=== PATIENT | male | born 1985 | race Caucasian/White ===

== ENCOUNTER 2024-01-29 11:42 | Emergency (ER) | payer BC, SELFPAY ==
[2024-01-29 11:49] VITALS: BP 151/88; PULSE 60; RESP 18; TEMP 36.3; O2SAT 98; BMI 34.4
--- NOTE | 2024-01-29 12:01 | ED.GENADULT ---
HPI - General Adult General Date Seen: 01/29/24 Chief complaint: Neck Injury/Pain Stated complaint: L arm numb, tingling Time Seen by Provider: 01/29/24 11:52 Source: patient Mode of arrival: ambulatory Limitations: no limitations History of Present Illness HPI narrative: Patient is a 38-year-old male with a history of hyperlipidemia on a statin presenting for left arm numbness. He was sent here by the [facility] after an EKG that was concerning. The cannot say for shows early repolarization or something else of concern. Patient states for the past couple days he has been having intermittent numbness and discomfort to his left arm going from his left shoulder down to his wrist. States the seems like it is worse when he is at rest and goes away when he is working. Has never had issues like this before. Initially thought it was due to sleeping wrong but was concerned because it was persisting for a few days. Is not sure what she was doing when he 1st noticed the symptoms. Denies having symptoms like this before. Denies weakness to that arm. Denies chest pain, shortness of breath, lightheadedness, dizziness, weakness, abdominal pain, headache, vision changes. No other concerns noted at this time. Currently asymptomatic Related Data Home Medications ?Medication ?Instructions ?Recorded ?Confirmed atorvastatin 20 mg tablet 20 mg PO QPM 01/29/24 01/29/24 Allergies Allergy/AdvReac Type Severity Reaction Status Date / Time No Known Drug Allergies Allergy Verified 01/29/24 11:48 Review of Systems Status of ROS: Reports: 10 or more systems reviewed and unremarkable except as noted in History and below Exam Narrative: Exam Narrative: Const: Well-nourished, Well-developed, in no distress Eyes: PERRL, no conjunctival injection, and symmetrical lids HENT: Atraumatic external nose and ears. Moist mucous membranes. Neck: Symmetric, trachea midline, No thyromegaly. CVS: RRR, No murmurs or gallops. Peripheral pulses 2+ and equal in all extremities RESP: Unlabored respiratory effort. Clear to auscultation bilaterally. GI: Nontender/Nondistended, No rebound or guarding. MSK:Extremities w/o deformity, Normal Active ROM Skin: Warm, Dry. No rashes or lesions. Neuro: Normal Muscle tone, No focal neurological deficits. Psych: Awake, Alert, & Oriented x3. Appropriate mood and affect. Const: Vital Signs, click to edit/add: Vital Signs - 24 hr 01/29/24 11:49 01/29/24 12:30 01/29/24 12:31 Temperature 97.4 F L Pulse Rate 52 L 51 L Pulse Rate [Pulse Oximeter] 60 Respiratory Rate 18 18 Blood Pressure 132/78 Blood Pressure [Ri ght Upper Arm] 151/88 H Pulse Oximetry 98 98 96 Oxygen Delivery Me thod Room Air Course Vital Signs Vital signs: Initial Vital Signs Temperature 97.4 F L 01/29/24 11:49 Temperature Source Temporal Artery Scan 01/29/24 11:49 Pulse Rate 60 01/29/24 11:49 Respiratory Rate 18 01/29/24 11:49 Blood Pressure 151/88 H 01/29/24 11:49 Blood Pressure Mean 109 H 01/29/24 11:49 Pulse Oximetry 98 01/29/24 11:49 Oxygen Delivery Method Room Air 01/29/24 11:49 Vital Signs Temperature 97.4 F L 01/29/24 11:49 Pulse Rate 60 01/29/24 11:49 Respiratory Rate 18 01/29/24 11:49 Blood Pressure 151/88 H 01/29/24 11:49 Pulse Oximetry 98 01/29/24 11:49 Oxygen Delivery Method Room Air 01/29/24 11:49 Temperature 97.4 F L 01/29/24 11:49 Pulse Rate 51 L 01/29/24 12:31 Respiratory Rate 18 01/29/24 12:30 Blood Pressure 132/78 01/29/24 12:30 Pulse Oximetry 96 01/29/24 12:31 Oxygen Delivery Method Room Air 01/29/24 11:49 Medical Decision Making [facility] Narrative Medical decision making narrative: Patient is a 38-year-old male presenting for left arm numbness and tingling. This is intermittent. He with the primary care provider was told to come here for evaluation. She states he had a possibly concerning EKG. He is asymptomatic at this time and is having now chest discomfort or shortness of breath. The arms symptoms seem to resolve with movement. Will order CBC, BMP, point of care troponin, EKG. Lab work all returned showing no concerning abnormalities. Concerning symptoms have been going on for several days I do not believe is necessary to repeat the troponin. EKG shows sinus bradycardia but otherwise no concerning findings. The symptoms any more related to a nerve dysfunction rather than cardiac. He is otherwise doing well we discharged home with primary care follow-up. He is agreeable to this plan. Lab Data Labs: Lab Results 01/29/24 Range/Units 12:10 WBC 4.77 (4.50-11.00) K/uL RBC 4.63 (4.30-5.90) m/uL Hgb 14.3 (13.5-17.5) gm/dL Hct 41.8 (37.0-53.0) % MCV 90 (80-100) fL MCH 31 (26-34) pg MCHC 34 (32-36) gm/dL RDW Coeff of Jose Alberto 12.7 (11.5-15.5) % Plt Count 220 (140-440) K/uL Neut % (Auto) 56.5 (42.0-72.0) % Lymph % (Auto) 31.4 (20-44) % Bandera % (Auto) 10.3 (0.0-11.0) % Eos % (Auto) 0.8 (0.0-7.0) % Baso % (Auto) 0.4 (0.0-3.0) % Neut # (Auto) 2.69 (1.7-7.0) K/uL Lymph # (Auto) 1.50 (0.90-2.90) K/uL Bandera # (Auto) 0.50 (0.00-0.90) K/UL Eos # (Auto) 0.04 (0.00-0.50) K/uL Baso # (Auto) 0.02 (0.00-0.30) K/uL Abs Immat Gran (auto) 0.03 (0.00-0.30) K/uL Imm/Tot Granulo (auto) 0.6 % Sodium 140 (135-149) mmol/L Potassium 4.2 (3.6-5.1) mmol/L Chloride 106 (96-114) mmol/L Carbon Dioxide 28 (20-32) mmol/L Anion Gap 6 L (7-15) mEq/L BUN 17 (5-24) mg/dL Creatinine 0.8 (0.5-1.5) mg/dL Estimated Creat Clear 131.81 Estimated GFR 118 ml/min Glucose 109 (60-115) mg/dL Calcium 9.3 (8.4-10.6) mg/dL POC Troponin I 0.00 L (0.01-0.04) ng/ml ECG Data Attestation: I personally reviewed and interpreted this ECG as follows: Prior ECG tracings: not available for review Interpretation: Sinus bradycardia with a rate of 51 beats per minute, normal intervals, normal axis, no ST or T-wave abnormalities Discharge Plan Discharge Clinical Impression: Arm numbness left Patient Disposition: Home, Self-Care Condition: Stable Instructions: Paresthesia (ED) Additional Instructions: This appears to be a primary nerve issue. Follow-up with the primary care provider symptoms persist and they may recommend he see a neurologist for a nerve study. Return to emergency department for new or worsening symptoms Prescriptions: No Action atorvastatin 20 mg tablet 20 mg PO QPM Follow Up/Referrals: Lisset Marks DO [Primary Care Provider] - Stand Alone Forms: My[facility] Info Instructions
[2024-01-29 12:17] LABS: Basophils Absolute Auto 0.02 K/uL (0.00-0.30); Basophils Percent Auto 0.4 % (0.0-3.0); Eosinophils Absolute Auto 0.04 K/uL (0.00-0.50); Eosinophils Percent Auto 0.8 % (0.0-7.0); Hematocrit 41.8 % (37.0-53.0); Hemoglobin* 14.3 gm/dL (13.5-17.5); Immature Granulocytes Abs Auto 0.03 K/uL (0.00-0.30); Immature Granulocytes Pct Auto 0.6 %; Lymphocytes Percent Auto 31.4 % (20-44); Mean Corpuscular HGB Conc 34 gm/dL (32-36); Mean Corpuscular Hemoglobin 31 pg (26-34); Mean Corpuscular Volume 90 fL (80-100); Monocytes Percent Auto 10.3 % (0.0-11.0); Neutrophils Absolute Auto 2.69 K/uL (1.7-7.0); Neutrophils Percent Auto 56.5 % (42.0-72.0); Platelet Count* 220 K/uL (140-440); RDW Coefficient of Variation % 12.7 % (11.5-15.5); Red Blood Count 4.63 m/uL (4.30-5.90); Slide Review Reflex No; White Blood Count* 4.77 K/uL (4.50-11.00)
[2024-01-29 12:30] VITALS: BP 132/78; PULSE 52; RESP 18; O2SAT 98
[2024-01-29 12:31] VITALS: PULSE 51; O2SAT 96
[2024-01-29 12:31] LABS: Chloride* 106 mmol/L (96-114); Potassium* 4.2 mmol/L (3.6-5.1); Sodium* 140 mmol/L (135-149)
[2024-01-29 12:34] LABS: Anion Gap 6 mEq/L (7-15); Blood Urea Nitrogen* 17 mg/dL (5-24); Carbon Dioxide* 28 mmol/L (20-32); Creatinine* 0.8 mg/dL (0.5-1.5); Est. Creatinine Clearance* 131.81; Estimated Glomerular Filt Rate 118 ml/min; Glucose* 109 mg/dL (60-115)
[2024-01-29 12:35] LABS: Calcium* 9.3 mg/dL (8.4-10.6)
[2024-01-29 12:45] VITALS: PULSE 52; O2SAT 97
[2024-01-29 13:00] VITALS: PULSE 44; O2SAT 100
[2024-01-29 13:15] VITALS: PULSE 50; O2SAT 100
== END 2024-01-29 13:28 | disposition home or self-care (01) ==
PROVIDERS: Emergency Provider Student in an Organized Health Care Education/Training Program; PCP Family Medicine
DX: R20.0 Anesthesia of skin (principal)
CPT/HCPCS: 36415; 80048; 84484; 85025; 99283; 99284

== ENCOUNTER 2024-09-27 20:21 | Emergency (ER) | payer BC, SELFPAY ==
--- OUTSIDE RECORDS SUMMARY | 2024-09-27 20:23 | XMS_ITS | Clinical Summary ---
Author Organization [employer] [facility] Address [place], [place] [address] Care Team Providers Care Pressure Washer Name Role Phone Lisset Marks DO Primary Care Provider Allergies Active Allergy Reactions Criticality Noted Date Comments Omeprazole Dizziness 07/23/2018 Medications multivitamin (MVI) tablet Take 1 tablet by mouth once daily. 0 7 Active CPAPIndications :Obstructive sleep apnea CPAP machine for home use at pressure 7 cmw, nasal mask x1/3month with nasal pillows x 2/mo 1 Each 11 3 Active clobetasol (TEMOVATE) 0.05 % creamIndication s:Psoriasis APPLY TOPICALLY TO AFFECTED AREA(S) TWICE DAILY NEEDED. 60 g 3 4 Active atorvastatin (LIPITOR) 20 mg tabletIndicatio ns:Hypertriglyc eridemia TAKE 1 TABLET BY MOUTH EVERYDAY AT BEDTIME 90 Tablet 2 4 Active atorvastatin (LIPITOR) 20 mg tabletIndicatio ns:Hypertriglyc eridemia TAKE 1 TABLET BY MOUTH EVERYDAY AT BEDTIME 90 Tablet 3 4 09/03/20 24 Discontinu ed(*Availa bility/For mulary change/Cos t of medication ) Active Problems Problem Noted Date Diagnosed Date Hypertriglyceridemia 06/17/2023 Routine physical examination 06/17/2023 Psoriasis 07/09/2018 CITLALI, 09/15/17, AHI 42.5 11/08/2017 Encounters Date Type Department Care Team Description 08/31/2024 [facility] [address] [place] [address] Lisset Marks DO Refill Request; ATORVASTATIN 06/29/2024 7:45 AM CDT [facility] [address] [place] [address] Lisset Marks, Physical (39 yr/) 06/29/2024 Travel from Last 3 Months Immunizations Name Administration Dates Next Due DTP 06/10/1989,02/29/1988,1987 ,1987 DTaP 04/20/1993 Hepatitis B (Peds) 09/18/1999,03/22/1999, 999 Inactivated Polio Vaccine 04/20/1993 Influenza A (H1N1), Inactivated 07/14/2021 Influenza, IIV4 06/13/2019,07/10/2018 MMR 12/26/1999,02/16/1999,11/06/1988 Oral Polio Vaccine 06/10/1989,02/29/1988, 988,1987 [place] 10/04/2022,09/27/2022,09/24/2022 ,09/20/2022 Td (Age >=7 Years) 06/22/2020,12/26/1999 Tdap 07/14/2010 Family History Medical History Relation Name Comments Hyperlipidemia Father Thyroid Disease Father Heart Disease Maternal Grandfather bypass Hyperlipidemia Maternal Grandfather Hyperlipidemia Mother Thyroid Disease Paternal Aunt Thyroid Disease Paternal Grandmother Relation Name Status Comments Father Maternal Grandfather Mother Paternal Aunt Paternal Grandmother Social History Tobacco Use Types Packs/Day Years Used Date Smoking Tobacco: Never Smokeless Tobacco: Never Tobacco Cessation:Counseling Given: Yes Alcohol Use Standard Drinks/Week Comments Yes 2 (1 standard drink = 0.6 oz pur e alcohol) occasional PHQ-2 Answer Date Recorded PHQ-2 TOTAL SCORE 0 06/29/2024 Social Connections Answer Date Recorded Frequency of Communication with Friends and Fami ly 0 06/17/2023 Financial Resource Strain Answer Date R ecorded Difficulty of Paying Living Expenses 3 06/17/2023 Difficulty of Paying Living Expenses Not on file 06/17/2023 Food Insecurity Answer Date Recorded Worried About Running Out of Food in the Last Ye ar 1 06/17/2023 Transportation Needs Answer Date Record ed Lack of Transportation (Medical) 1 06/17/2023 Housing Stability Answer Date Recorded Unable to Pay for Housing in the Last Year 1 06/17/2023 Sex and Gender Information Value Date Recorded Sex Assigned at Not on file Legal Sex Male 5:24 AM [employer] Gender Identity Not on file Sexual Orientation Straight 10/03/2021 8: 48 AM [employer] Obstetrics History Last Filed Vital Signs Vital Sign Reading Time Taken Comments Blood Pressure 123/77 06/29/2024 7:49 AM CDT Pulse 65 06/29/2024 7:49 AM CDT Temperature 36.7 C (98 F) 06/29/2024 7:49 AM CDT Respiratory Rate 20 09/20/2022 3:59 PM [employer] Oxygen Saturation 99% 06/29/2024 7:49 AM CDT Inhaled Oxygen Concentration - - Weight 111.6 kg (246 lb) 06/29/2024 7:49 AM CDT Height 176.9 cm (5' 9.65) 06/29/2024 7:49 AM CD T Body Mass Index 35.66 06/29/2024 7:49 AM CDT Plan of Treatment Health Maintenance Due Date Last Done Comments Influenza for age 9-49 05/10/2024 , 06/13/2019, 07/10/2018 COVID-19 vaccine series ( season) 2025 Postponed from 05/10/2024 (Patient discretion) BMI (ht and wt on same day) for age 18+ 06/29/2025 06/29/2024, 06/17/2023, 10/06/2021, Additional history exists Depression screening for age 12+ 06/29/2025 06/29/2024, 06/17/2023, 10/06/2021, Additional history exists Lipids for age 35-44 06/29/2029 06/29/2024, 06/17/2023, 10/06/2021, Additional history exists Tetanus booster 06/22/2030 06/22/2020, 11/01/2010, 12/26/1999 Tdap Completed 07/14/2010 HIV for age 15-65 Completed 06/17/2023 Hepatitis C screening for age 18-79 Completed 06/17/2023 Pneumococcal series for age 6-49 Aged Out No longer eligible based on patient's age to complete this topic Procedures Procedure Name Priority Date/Time Associated Diagnosis Comments BASIC METABOLIC PANEL Routine 06/29/2024 8:26 AM CDT Screening for diabetes mellitus LIPID PANEL W REFLEX MEASURED LDL Routine 06/29/2024 8:26 AM CDT Hypertriglyceridemia ANTI HIV 1/2 Routine 06/17/2023 8:29 AM CDT Screening for HIV (human immunodeficiency virus) ANTI HCV Routine 06/17/2023 8:29 AM CDT Need for hepatitis C screening test from Last 3 Months or Most Recently Relevant to Health Maintenance Results * (ABNORMAL) LIPID PANEL W REFLEX MEASURED LDL (06/29/2024 8:26 AM CDT) Pathologist [facility] CHOLESTEROL, TOTAL 156 <200 mg/dL [facility] HDL CHOLESTEROL 31(L) > OR = 40 mg/dL [facility] TRIGLYCERIDES 272(H) <150 mg/dL [facility] Comment: If a non-fasting specimen was collected, consider repeat triglyceride testing on a fasting specimen if clinically indicated. Mariel et al. J. of Clin. Lipidol. 2015;9:129-169. LDL-CHOLESTEROL 89 mg/dL (calc) [facility] Comment: Reference range: <100 Desirable range <100 mg/dL for primary prevention; <70 mg/dL for patients with CHD or diabetic patients with > or = 2 CHD risk factors. LDL-C is now calculated using the Tavon-Kim calculation, which is a validated novel method providing better accuracy than the Friedewald equation in the estimation of LDL-C. Tavon SS et al. EDGAR. 2013;310(19): 2667-7672 (http://education.FooPets/faq/WRP318) CHOL/HDLC RATIO 5.0(H) <5.0 (calc) [facility] NON HDL CHOLESTEROL 125 <130 mg/dL (calc) [facility] Comment: For patients with diabetes plus 1 major ASCVD risk factor, treating to a non-HDL-C goal of <100 mg/dL (LDL-C of <70 mg/dL) is considered a therapeutic option. Blood BLOOD SPECIMEN / Unknown 06/29/2024 8:26 AM CDT 06/29/2024 8:27 AM CDT Narrative [facility] - 06/30/2024 11:30 AM CDT FASTING:YES FASTING: YES us Lisset Marks DO CHEMISTRY Final Resul t [facility] [address] [place] [address], [facility] [address] * BASIC METABOLIC PANEL (06/29/2024 8:26 AM CDT) [facility] GLUCOSE 95 65 - 99 mg/dL [facility] Comment: Fasting reference interval UREA NITROGEN (BUN) 13 7 - 25 mg/dL [facility] CREATININE 0.86 0.60 - 1.26 mg/dL [facility] EGFR 114 > OR = 60 mL/min/1. 73m2 [facility] BUN/CREATININE RATIO SEE NOTE: 6 - 22 (calc) [facility] Comment: Not Reported: BUN and Creatinine are within reference range. SODIUM 141 135 - 146 mmol/L [facility] POTASSIUM 4.8 3.5 - 5.3 mmol/L [facility] CHLORIDE 104 98 - 110 mmol/L [facility] CARBON DIOXIDE 30 20 - 32 mmol/L [facility] ELECTROLYTE BALANCE 7 7 - 17 mmol/L (calc) [facility] CALCIUM 9.4 8.6 - 10.3 mg/dL [facility] Blood BLOOD SPECIMEN / Unknown 06/29/2024 8:26 AM CDT 06/29/2024 8:27 AM CDT Narrative [facility] - 06/30/2024 11:30 AM CDT FASTING:YES FASTING: YES Lisset Marks DO CHEMISTRY Final Resul t [facility] [address] [place] [address], [place] [phone] [facility] [address] [place] [address] * ANTI HCV (06/17/2023 8:29 AM CDT) HEPATITIS C ANTIBODY Non-Reacti ve Non-React ernestina 06/17/2023 6:05 PM CDT [facility] Comment:Please note, per www .CDC.gov: If a patient is known to be at high risk of HCV infection, or is symptomatic, and the physician's suspicion of HCV infection is high, HCV RNA testing is often employed and is of diagnostic value, even after an initial negative anti-HCV test result. Blood BLOOD SPECIMEN / Unknown Venipuncture / Unknown 06/17/2023 8:29 AM CDT 06/17/2023 8:30 AM CDT Lisset Marks DO SEND OUTS Final Resul t Performing Organization Address City/[facility]/ZIP Co de Phone Number [facility] [address] [place] [address], [place] * ANTI HIV 1/2 [955[address].0] (06/17/2023 8:29 AM CDT) HIV-1/HIV-2 SCREEN Non-Reacti ve Non-Reacti ve 06/17/2023 5:54 PM CDT [facility] Comment:HIV-1 p24 and HIV-1/ HIV-2 Ab Not Detected. Blood BLOOD SPECIMEN / Unknown Venipuncture / Unknown 06/17/2023 8:29 AM CDT 06/17/2023 8:30 AM CDT us Lisset Marks DO SEND OUTS Final Resul t [facility] [address] [place] [address], from Last 3 Months or Most Recently Relevant to Health Maintenance Insurance [facility] Care Teams Pressure Washer Relationship Specialty Start Date End Date Lisset Marks DO [address] [place] [address] PCP - General Family Practice 07/01/19
[2024-09-27 20:29] VITALS: BP 128/72; PULSE 83; RESP 18; TEMP 37.2; O2SAT 98; BMI 32.3
--- NOTE | 2024-09-27 20:40 | CRLHL7_ITS ---
For Patients: As a result of the Cures Act, medical imaging exams and procedure reports are released immediately into your electronic medical record. You may view this report before your referring provider. If you have questions, please contact your health care provider. INDICATION: Pain, swelling. TECHNIQUE: Right hand 2nd digit, 3 view. COMPARISON: None. FINDINGS: Bones: No acute fracture or suspicious bone lesion. Alignment is normal. Joint spaces: Unremarkable. Soft tissues: Soft tissue swelling about the 2nd digit. IMPRESSION: Soft tissue swelling. No fracture identified. Dictated by Torri Webb MD @ 09/27/2024 9:23:11 PM (Electronically Signed)
--- NOTE | 2024-09-27 21:05 | ED_ITS ---
HPI - Extremity Injury (Upper) General Date Seen: 09/27/24 Chief Complaint: Extremity Pain/Injury, Upper Stated Complaint: Right pointer swollen and discoloured Time Seen by Provider: 09/27/24 20:23 Source: patient Mode of arrival: ambulatory Limitations: no limitations History of Present Illness HPI narrative: Patient presents here with a right 2nd fingers swelling and throbbing, notes it in the D IP area of his finger, more on the pad but also has the wrong the medial side of his finger. Thinks he may have got a sliver in there today while he was lifting or stacking firewood he was able to get 1 of them out. Progressively as the day has gone on it has gotten more sore he has trouble moving his D IP joint but he is able to move his PIP joint normally. Tetanus status is checked and he is up-to-date. No history of any allergies. Denies any fevers chills, redness rashes, he is left-handed. Has not taken any pain medications for this. complaint: injury to: right and finger Onset (ago): hour(s) Other Extremity Injury: Right: fingers Other injuries: none Hand dominance: Left Place: home Severity: moderate Relieving factors: none Exacerbating factors: none Context: other Associated symptoms: denies other symptoms Related Data Home Medications ?Medication ?Instructions ?Recorded ?Confirmed atorvastatin 20 mg tablet 20 mg PO QPM 01/29/24 01/29/24 Allergies Allergy/AdvReac Type Severity Reaction Status Date / Time No Known Drug Allergies Allergy Verified 01/29/24 11:48 Review of Systems Status of ROS: Reports: 6 or more systems reviewed and unremarkable except as noted in History and below [facility] Social History How often do you have a drink containing alcohol: 2-4 times a month AUDIT-C Alcohol total score: 2 Non-prescribed substance use: denies use Exam Narrative: Exam Narrative: On examination in room 4 he is in no apparent distress his right finger is is swollen and a little bit tense the D IP flexion area more on the medial than the lateral side there is also slight redness extending up around his finger, around the nail resembling more of a paronychaie type presentation. I do not see any pointing, it is slightly warm, he works with his hands so he has a very thickened calluses over his fingers. Wrist has full range of motion, no swelling into his forearm, he does not have any nodes around his elbow or into his armpit. Neurologically intact good her radial and brachial pulses cap refill is excellent. Const: Vital Signs, click to edit/add: Vital Signs - 24 hr 09/27/24 20:29 Temperature 98.9 F Pulse Rate [Pulse Oximeter] 83 Respiratory Rate 18 Blood Pressure [Ri ght Upper Arm] 128/72 Pulse Oximetry 98 Oxygen Delivery Me thod Room Air Documenting provider has reviewed patient's vital signs: yes Course Course ED Course: X-rays done which is negative for any evidence of a foreign body. There is some mild swelling, this is either early cellulitis, tenosynovitis, or paronychia. I did speak to the on-call orthopedic PA Quique, he will be seen tomorrow, and he will be put in a splint. I have asked him to take Tylenol and ibuprofen, follow up here if any signs and symptoms of worsening, but for overnight I think this will be fine. Vital Signs Vital signs: Initial Vital Signs Temperature 98.9 F 09/27/24 20:29 Temperature Source Temporal Artery Scan 09/27/24 20:29 Pulse Rate 83 09/27/24 20:29 Pulse Rhythm Regular 09/27/24 20:29 Respiratory Rate 18 09/27/24 20:29 Blood Pressure 128/72 09/27/24 20:29 Blood Pressure Mean 90 09/27/24 20:29 Blood Pressure Position Sitting 09/27/24 20:29 Pulse Oximetry 98 09/27/24 20:29 Oxygen Delivery Method Room Air 09/27/24 20:29 Vital Signs Temperature 98.9 F 09/27/24 20:29 Pulse Rate 83 09/27/24 20:29 Respiratory Rate 18 09/27/24 20:29 Blood Pressure 128/72 09/27/24 20:29 Pulse Oximetry 98 09/27/24 20:29 Oxygen Delivery Method Room Air 09/27/24 20:29 Temperature 98.9 F 09/27/24 20:29 Pulse Rate 83 09/27/24 20:29 Respiratory Rate 18 09/27/24 20:29 Blood Pressure 128/72 09/27/24 20:29 Pulse Oximetry 98 09/27/24 20:29 Oxygen Delivery Method Room Air 09/27/24 20:29 MDM - Extremity Injury (Upper) Medical Records Attestation: I reviewed the patient's medical records. Imaging Data Finger x-ray: Attestation: I have reviewed the pertinent imaging results. My impression: X-ray does not show any evidence of foreign body. Discharge Plan Discharge Clinical Impression: Paronychia of finger of right hand Patient Disposition: Home, Self-Care Condition: Stable Instructions: Paronychia (ED), Cellulitis (ED) Additional Instructions: Will start antibiotics, take her 1st dose tonight. Use Tylenol or ibuprofen, wear your splint also. Recommend follow-up tomorrow with Orthopedics, call [phone], say that you spoke to the on-call SHERICE Lei and you should be getting in to be seen. Soaking in warm salt water also is suggested. Augmentin 875 mg p.o. b.i.d. times 10 days given via instymeds Activity Level: Light activity Prescriptions: No Action atorvastatin 20 mg tablet 20 mg PO QPM Follow Up/Referrals: Lisset Marks DO [Primary Care Provider] - Stand Alone Forms: [employer] Info Instructions
--- OUTSIDE RECORDS SUMMARY | 2024-09-27 21:13 | XMS_ITS | Clinical Summary ---
Author Organization [employer] [facility] Address [place], [place] [address] Care Team Providers Care Tie Tape Machine Operator Name Role Phone Lisset Marks DO Primary [...] Type Department Care Team Description 08/31/2024 Refill [facility] [address] [place] [address] Lisset Marks DO Refill Request; ATORVASTATIN 06/29/2024 7:45 AM CDT Office Visit [facility] [address] [place] [address] Lisset Marks, Physical (39 yr/) 06/29/2024 Travel [...] on file Legal Sex Male 5:24 AM ADJUSTER LEADER Gender Identity Not on file Sexual Orientation Straight 10/03/2021 8: 48 AM ADJUSTER LEADER Obstetrics History Last Filed Vital Signs Vital Sign Reading Time Taken Comments Blood Pressure 123/77 06/29/2024 7:49 AM CDT Pulse 65 06/29/2024 7:49 AM CDT Temperature 36.7 C (98 F) 06/29/2024 7:49 AM CDT Respiratory Rate 20 09/20/2022 3:59 PM ADJUSTER LEADER Oxygen Saturation 99% 06/29/2024 7:49 AM CDT [...] MEASURED LDL (06/29/2024 8:26 AM CDT) Pathologist [facility] CHOLESTEROL, TOTAL 156 <200 mg/dL [facility] HDL CHOLESTEROL 31(L) > OR = 40 mg/dL [facility] TRIGLYCERIDES 272(H) <150 mg/dL [facility] Comment: If a non-fasting specimen was collected, consider repeat triglyceride testing on a fasting specimen if clinically indicated. Mariel et al. J. of Clin. Lipidol. 2015;9:129-169. LDL-CHOLESTEROL 89 mg/dL (calc) [facility] Comment: Reference range: <100 Desirable range <100 mg/dL for primary prevention; <70 mg/dL for patients with CHD or diabetic patients with > or = 2 CHD risk factors. LDL-C is now calculated using the Tavon-Kim calculation, which is a validated novel method providing better accuracy than the Friedewald equation in the estimation of LDL-C. Tavon SS et al. EDGAR. 2013;310(19): 1098-9881 (http://education.Appian/faq/AFR116) CHOL/HDLC RATIO 5.0(H) <5.0 (calc) [facility] NON HDL CHOLESTEROL 125 <130 mg/dL (calc) [facility] Comment: For patients with diabetes plus 1 major ASCVD risk factor, treating to a non-HDL-C goal of <100 mg/dL (LDL-C of <70 mg/dL) is considered a therapeutic option. Blood BLOOD SPECIMEN / Unknown 06/29/2024 8:26 AM CDT 06/29/2024 8:27 AM CDT Narrative [facility] - 06/30/2024 11:30 AM CDT FASTING:YES FASTING: YES us Lisset Marks DO CHEMISTRY Final Resul t [facility] [facility] [address] [place] [address], [employer] [address] * BASIC METABOLIC PANEL (06/29/2024 8:26 AM CDT) [facility] GLUCOSE 95 65 - 99 mg/dL [employer] [facility] Comment: Fasting reference interval UREA NITROGEN (BUN) 13 7 - 25 mg/dL [facility] [facility] CREATININE 0.86 0.60 - 1.26 mg/dL [facility] EGFR 114 > OR = 60 mL/min/1. 73m2 [facility] BUN/CREATININE RATIO SEE NOTE: 6 - 22 (calc) [facility] [facility] Comment: Not Reported: BUN and [...] [facility] CALCIUM 9.4 8.6 - 10.3 mg/dL [facility] Blood BLOOD SPECIMEN / Unknown 06/29/2024 8:26 AM CDT 06/29/2024 8:27 AM CDT Narrative [facility] - 06/30/2024 11:30 AM CDT FASTING:YES FASTING: YES Lisset Marks DO CHEMISTRY Final Resul t [facility] [address] [place] [address], [place] [phone] [facility] [address] [place] [address] * ANTI HCV (06/17/2023 8:29 AM CDT) HEPATITIS C ANTIBODY Non-Reacti ve Non-React ernestina 06/17/2023 6:05 PM CDT [facility] Comment:Please note, per www .CDC.gov: [...] OUTS Final Resul t Performing Organization Address City/[facility]/ZIP Co de Phone Number [facility]AL [facility]OR[facility] [address] [place] [address], [place] * ANTI HIV 1/2 [22209.0] (06/17/2023 8:29 AM CDT) HIV-1/HIV-2 SCREEN Non-Reacti ve Non-Reacti ve 06/17/2023 5:54 PM CDT [facility] Comment:HIV-1 p24 and HIV-1/ HIV-2 Ab Not Detected. Blood BLOOD SPECIMEN / Unknown Venipuncture / Unknown 06/17/2023 8:29 AM CDT 06/17/2023 8:30 AM CDT us Lisset Marks DO SEND OUTS Final Resul t [email or web address] LABORATORY-CENTRAL LABORATORY [address] [place] [address], from Last 3 Months or Most Recently Relevant to Health Maintenance Insurance [facility] NON-PA-[facility] Care Teams Tie Tape Machine Operator Relationship Specialty Start Date End Date Lisset Marks DO [address] [place] [address] PCP - General Family Practice 07/01/19
== END 2024-09-27 21:49 | disposition home or self-care (01) ==
PROVIDERS: Emergency Provider Family Medicine; PCP Family Medicine
DX: L03.011 Cellulitis of right finger (principal)
CPT/HCPCS: 29130; 73140; 99282; 99283

== ENCOUNTER 2024-09-30 08:27 | Day surgery (SDC) | payer BC, SELFPAY ==
[2024-09-30] VITALS (9 sets, daily range): BP systolic 115–127; BP diastolic 74–92; PULSE 44–69; RESP 14–16; TEMP 36.6–37.1; O2SAT 94–100; BMI 32.3
--- OUTSIDE RECORDS SUMMARY | 2024-09-30 08:30 | XMS_ITS | Clinical Summary ---
Author Organization [employer] [facility] Address [place], [place] [address] Care Team Providers Care Earth Science Technical Officer Name Role Phone Lisset Marks DO Primary Care Provider [phone] Allergies Active Allergy Reactions Criticality Noted Date [...] Encounters Date Type Department Care Team Description 09/27/2024 Orders Only [facility] Scanner 1 scan: (1-Ord) RENA, XR 2ND FINGER RT, 09/27/2024 08/31/2024 Refill [facility] [address] [place] [address] Lisset Marks DO Refill Request; ATORVASTATIN from Last 3 Months Immunizations Name Administration [...] on file Legal Sex Male 5:24 AM SANDER AND BUFFER Gender Identity Not on file Sexual Orientation Straight 10/03/2021 8: 48 AM SANDER AND BUFFER Obstetrics History Last Filed Vital Signs Vital Sign Reading Time Taken Comments Blood Pressure 123/77 06/29/2024 7:49 AM CDT Pulse 65 06/29/2024 7:49 AM CDT Temperature 36.7 C (98 F) 06/29/2024 7:49 AM CDT Respiratory Rate 20 09/20/2022 3:59 PM SANDER AND BUFFER Oxygen Saturation 99% 06/29/2024 7:49 AM CDT [...] Additional history exists Tetanus booster 06/22/2030 06/22/2020, 01/2010, 12/26/1999 Tdap Completed 07/14/2010 HIV for age 15-65 Completed 06/17/2023 Hepatitis C screening for age 18-79 Completed 06/17/2023 Pneumococcal series for age 6-49 Aged Out No longer eligible based on patient's age to complete this topic Procedures Procedure Name Priority Date/Time Associated Diagnosis Comments SCAN-RADIOLOGY REPORT 09/27/2024 12:00 AM SANDER AND BUFFER LIPID PANEL W REFLEX MEASURED LDL Routine 06/29/2024 8:26 AM CDT Hypertriglyceridemia ANTI HIV 1/2 Routine 06/17/2023 8:29 AM CDT Screening for HIV (human immunodeficiency virus) ANTI HCV Routine 06/17/2023 8:29 AM CDT Need for hepatitis C screening test from Last 3 Months or Most Recently Relevant to Health Maintenance Results * SCAN-RADIOLOGY REPORT (09/27/2024 12:00 AM SANDER AND BUFFER) Anatomical Region Laterality Modality Other us Scanner OTHER Final Result * (ABNORMAL) LIPID PANEL W REFLEX MEASURED LDL (06/29/2024 8:26 AM CDT) CHOLESTEROL, TOTAL 156 <200 mg/dL [facility] HDL CHOLESTEROL 31(L) > OR = 40 mg/dL [facility] TRIGLYCERIDES 272(H) <150 mg/dL [facility] Comment: If a non-fasting specimen was collected, consider repeat triglyceride testing on a fasting specimen if clinically indicated. Mariel et al. J. of Clin. Lipidol. 2015;9:129-169. LDL-CHOLESTEROL 89 mg/dL (calc) [facility] Comment: Reference range: <100 Desirable range <100 mg/dL for primary prevention; <70 mg/dL for patients with CHD or diabetic patients with > or = 2 CHD risk factors. LDL-C is now calculated using the Dalia calculation, which is a validated novel method providing better accuracy than the Friedewald equation in the estimation of LDL-C. Tavon MASTERSON et al. EDGAR. 2013;310(19): 5946-8539 (http://education.Cortrium/faq/HVO514) CHOL/HDLC RATIO 5.0(H) <5.0 (calc) [facility] NON HDL CHOLESTEROL 125 <130 mg/dL (calc) [facility] Comment: For patients with diabetes plus 1 major ASCVD risk factor, treating to a non-HDL-C goal of <100 mg/dL (LDL-C of <70 mg/dL) is considered a therapeutic option. Blood BLOOD SPECIMEN / Unknown 06/29/2024 8:26 AM CDT 06/29/2024 8:27 AM CDT Narrative [facility] - 06/30/2024 11:30 AM CDT FASTING:YES FASTING: YES Lisset Marks DO CHEMISTRY Final Resul t Performing Organization Address [facility] Co de Phone Number [employer] [facility] [address] [place] [address], [place] [phone] [facility] [address] [place] [address] * ANTI HCV (06/17/2023 8:29 AM CDT) [facility] HEPATITIS C ANTIBODY Non-Reacti ve Non-React ernestina 06/17/2023 6:05 PM CDT [facility] [employer] Comment:Please note, per www .CDC.gov: [...] OUTS Final Resul t Performing Organization Address City/[facility] Co de Phone Number [facility] [address] [place] [address], [place] * ANTI HIV 1/2 [32978.0] (06/17/2023 8:29 AM CDT) [facility] HIV-1/HIV-2 SCREEN Non-Reacti ve Non-Reacti ve 06/17/2023 5:54 PM CDT [facility] Training [employer] Comment:HIV-1 p24 and HIV-1/ HIV-2 Ab Not Detected. Blood BLOOD SPECIMEN / Unknown Venipuncture / Unknown 06/17/2023 8:29 AM CDT 06/17/2023 8:30 AM CDT us Lisset Marks DO SEND OUTS Final Resul t [facility] LABORATORY-CENTRAL LABORATORY [address] [place] [address], [place] from Last 3 Months or Most Recently Relevant to Health Maintenance Insurance [facility] Care Teams Earth Science Technical Officer Relationship Specialty Start Date End Date [place] [address] PCP - General Family Practice 07/01/19
--- NOTE | 2024-09-30 08:52 | W.PM.H&PU ---
History & Physical Update History & Physical Update H&P Updates: He notes the redness has diminished minor early at the base of the index finger, but is still exquisitely tender over the middle phalanx and extending to the distal phalanx. He has 7 days worth of Augmentin remaining.
[2024-09-30] MEDS: SODIUM CHLORIDE 0.9 % (FLUSH) 10 ML SYRINGE IVF (09:05)
[2024-09-30] MEDS: fentaNYL 100 MCG/2 ML inj IVP (09:30)
[2024-09-30] MEDS: MIDAZOLAM HCL 1 MG/ML inj IVP (09:30)
--- NOTE | 2024-09-30 09:45 | P.NB_ITS ---
Nerve Block Nerve Block Time Seen by Provider: 09:37 Date Seen: 09/30/24 Type of block requested by surgeon for post-operative analgesia: axillary Side: right Time out performed: Yes Verification of patient name: Yes Verification of date of : Yes Site marking: site marked Name of person performing procedure: Renato Continuous monitoring Was continuous monitoring of O2 sat, B/P, monitoring specialist, recorded every 15 minutes?: Yes Procedure Checklist: sterile prep, needles and gloves Ultrasound guided. Images saved: Yes Medications given in 5ml increments after negative aspiration: Ropivicaine %: 0.5 mL: 10 Needle gauge: 22 and Lidocaine %: 2 mL: 20 Needle gauge: 22 Patient tolerated procedure well: Yes Additional comments: Needle noted adjacent to nerve Block Charges Block Charge (with Pro Fee): Brachial Plexus Use of Ultrasound Machine for Block: Yes- US Guidance/pain block
--- NOTE | 2024-09-30 09:46 | P.ANES_ITS ---
Anesthesia Charges Start Date/Time Anesthesia Start Date: 09/30/24 Anesthesia Start Time: 10:08 Stop Date/Time Anesthesia Stop Date: 09/30/24 Anesthesia Stop Time: 11:05 Coding CPT Codes CPT Codes: ANESTH ELBOW AREA SURGERY - 10637 ([id number]) QK - CONDITIONING COACH 2-4 CNCRNT ANES PROC, QX - ANALYTICS ASSOCIATE SVC W/ MD MED DIRECTION, P2 - PATIENT W/MILD SYST DISEASE
--- NOTE | 2024-09-30 09:46 | W.ANESCHARGE ---
Anesthesia Charges Start Date/Time Anesthesia Start Date: 09/30/24 Anesthesia Start Time: 10:08 Stop Date/Time Anesthesia Stop Date: 09/30/24 Anesthesia Stop Time: 11:05 Coding CPT Codes CPT Codes: ANESTH ELBOW AREA SURGERY - 68835 ([id number]) QK - GUNNER'S MATE M 2-4 CNCRNT ANES PROC, QX - CUSTODIAL FOREMAN SVC W/ MD MED DIRECTION, P2 - PATIENT W/MILD SYST DISEASE
[2024-09-30] MEDS: 0.9 % SODIUM CHLORIDE 500 ML 500 ML 100 ML IV (10:00)
[2024-09-30] MEDS: CEFAZOLIN 2 GM in 0.9 % SODIUM CHLORIDE Mini-bag 100 ML IVPB (10:20)
[2024-09-30] MEDS: NEOMYCIN/BACITRACIN/POLYMYXIN B 1 APPLIC TOPICAL (10:44)
--- NOTE | 2024-09-30 10:48 | P.ORPRC_ITS ---
Procedure Note Date of procedure: 09/30/24 Procedure: PREOPERATIVE DIAGNOSIS: 1. Right index finger pyogenic flexor tenosynovitis 2. Right index finger felon POSTOPERATIVE DIAGNOSIS: 1. Right index finger pyogenic flexor tenosynovitis 2. Right index finger felon PROCEDURE: 1. Right index finger incision and drainage of pyogenic flexor tenosynovitis 2. Right index finger distal phalanx incision for infected distal pulp/felon SURGEON: J Carlos Monte MD. COMPENSATION ANALYST: Charlene Lewis RN FA - Of note, an assistant brand manager was critical for this case to aid in patient positioning, tissue retraction, limb manipulation/positioning, and closure. ANESTHESIA: Regional block plus MAC IMPLANTS: None TOURNIQUET: 15 minutes at 225 torr COMPLICATIONS: None evident INDICATIONS: The patient is a pleasant 39-year-old male who sustained a wood splinter penetration of his right index finger volar skin along the middle phalangeal region. He thought he got the splinter out, but over the coming days noted that this finger continue to get increasingly red, swollen, warm, and difficulty to touch or direct support professional things. He presented [facility] 2 days ago. Clinical suspicion for paronychia was noted. It was not felt to be extensive. He was placed on oral antibiotics and encouraged to follow up in Orthopedic Clinic. He was seen the following day where there was more suspicion for pyogenic flexor tenosynovitis of the right index finger. Therefore, surgery was indicated to open the flexor sheath and irrigate as well as debride thoroughly. DESCRIPTION OF PROCEDURE: Following a thorough discussion of risks, benefits, and alternatives consent was obtained and the operative extremity was marked. The patient was brought to the operating room and placed supine on the operating table. 2 g IV Ancef were administered within 1 hour incision preoperatively. Proper time-out was performed identifying proper patient, site, and procedure. The operative extremity was prepped and draped in the appropriate sterile fashion using ChloraPrep. The limb was exsanguinated and the tourniquet inflated. A Juvencio type incision was made across the middle phalanx and then extended distally along the distal phalanx on the ulnar aspect of the index finger. Sharp incision through skin and blunt dissection to subcutaneous tissue down to the flexor sheath was performed with tenotomy scissors. There was some mild fluid within the flexor tendon sheath that was slightly more than is typical but not as grossly purulent as expected. A culture sample was obtained. We extended this incision distally along the ulnar side of the distal phalanx and open up the distal pulp. Debridement was performed with rongeur and curette as well as Ray-Jeanmarie. Thorough irrigation normal saline was performed. A thorough inspection was performed looking for foreign bodies in particular around the middle and distal phalanges. No wood pieces or foreign bodies were identified. There was some hemorrhagic tissue along the volar radial aspect of the mid- distal aspect of the middle phalangeal region. At this stage, the tourniquet was deflated and hemostasis achieved. Closure was performed with 4-O nylon. Soft dressings were applied, and the patient was awoken/transferred to the recovery room in stable condition. PLAN: 1. Encourage elevation of the operative extremity. 2. Range of motion of the operative extremity/digits as tolerated. 3. Ibuprofen, acetaminophen and/or oxycodone as needed for pain. 4. Follow up with PA visit in 12-16 days for wound check and suture removal.
--- NOTE | 2024-09-30 11:08 | P.ANES_ITS ---
Anesthesia Charges Start Date/Time Anesthesia Start Date: 09/30/24 Anesthesia Start Time: 10:08 Stop Date/Time Anesthesia Stop Date: 09/30/24 Anesthesia Stop Time: 11:05 Coding CPT Codes CPT Codes: ANESTH LOWER ARM SURGERY - 69087 ([id number]) P2 - PATIENT W/MILD SYST DISEASE, QX - PRESIDENT COMMERCIAL BANK SVC W/ MD MED DIRECTION, QK - HULL BUILDER 2-4 CNCRNT ANES PROC
--- NOTE | 2024-09-30 11:08 | W.ANESCHARGE ---
Anesthesia Charges Start Date/Time Anesthesia Start Date: 09/30/24 Anesthesia Start Time: 10:08 Stop Date/Time Anesthesia Stop Date: 09/30/24 Anesthesia Stop Time: 11:05 Coding CPT Codes CPT Codes: ANESTH LOWER ARM SURGERY - 52327 ([id number]) P2 - PATIENT W/MILD SYST DISEASE, QX - CROWN WHEEL ASSEMBLER SVC W/ MD MED DIRECTION, QK - FINISHING SUPERVISOR PLASTIC SHEETS 2-4 CNCRNT ANES PROC
[2024-09-30] MEDS: IBUPROFEN 200 MG TABLET 400 MG PO (12:05)
== END 2024-09-30 12:50 | disposition home or self-care (01) ==
PROVIDERS: PCP Family Medicine; Visit Provider Orthopaedic Surgery Sports Medicine
PROC: 0HQQXZZ Repair Finger Nail, External Approach (ICD-10-PCS; CPT 11760; principal; 2024-09-30 10:45)
DX: M65.141 Other infective (teno)synovitis, right hand (principal); L03.011 Cellulitis of right finger; G89.18 Other acute postprocedural pain
CPT/HCPCS: 26020; 26210; 01710; 01810; 64415; 76942; 87070; 87075; 87186; 87205; A9270; J0690; J2250; J2405; J2704; J2795; J3010; J7030

== ENCOUNTER 2024-10-07 08:30 | Outpatient (RCR) | payer BC, SELFPAY ==
--- NOTE | 2024-10-05 15:19 | OT.OPOE ---
OT Outpatient Ortho Eval OT Outpatient Ortho Eval* Start: 10/05/24 07:58 Freq: Status: Active Protocol: Document 10/05/24 07:59 PRETTYWesly (Rec: 10/05/24 15:16 PRETTYWesly [id number]) E-signed By Christelle Pope, OTR/L, CLT OT OP Ortho Eval Details Complexity Complexity Medium Insurance Information Insurance Information Blue [employer] Outpatient History/Precautions Current Condition/Medical Diagnosis Referring Provider Dr. J Carlos [facility] Diagnoses Z98.890 Post procedural states , s/p R index finger I & D M65.841 R index finer pyogenic flexor tenosynovitis Treatment Diagnosis R60.0 Localized edema M79.644 Pain in R hand, R index finger M25. 641 Stiffness in the R hand, R index finger Date of Onset Surgery 09/30/24; DOI: 09/27/24 Other Conditions PRE/POSTOPERATIVE DIAGNOSIS: 1. Right index finger pyogenic flexor tenosynovitis 2. Right index finger felon PROCEDURE: 1. Right index finger incision and drainage of pyogenic flexor tenosynovitis 2. Right index finger distal phalanx incision for infected distal pulp/felon Medical/Functional History Medical History Reviewed Yes Prior Level of Function/Mobility Suppurative tenosynovitis of flexor tendon of right hand Involving the right index, with slow extension proximally (date of injury/wood splinter morning of 09/27/2024) M65.141 - Other infective ( teno)synovitis, right hand ( ICD-10) Paronychia of finger of right hand (Acute) L03.011 - Cellulitis of right finger (ICD-10) Elevated cholesterol- E78.00 - Pure hypercholesterolemia, unspecified (ICD-10) Psoriasis- L40.9 - Psoriasis, unspecified (ICD-10) Sleep apnea -G47.30 - Sleep apnea, unspecified (ICD-10) Social History Employment Status [employer] Employed 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 He thought he got the splinter out, but over the coming days noted that this finger continue to get increasingly red, swollen, warm, and difficulty to touch or prospecting observer things. He presented to [place] ED on 09/27/24 with clinical suspicion for paronychia. He was placed on oral antibiotics. He was seen the following day by ORTHO where there was more suspicion for pyogenic flexor tenosynovitis of the right index finger. Therefore, surgery was indicated to open the flexor sheath and irrigate as well as debride thoroughly . He was issued an Alumafoam splint to wear prior to surgery. Of note, patient is leaving for [place] for a 1 week vacation on 10/12/2024, leaving that morning on a flight therefore, his Ortho f/ u apt with PA is scheduled for 10/09/24 at 9:10 am for wound check and suture removal . Pain Assessment Pain Pain Yes Pain Comments with movement 4/10 no pain at rest Goniometric Comments Goniometric Comments Goniometric Comments AROM of the R hand index finger: DIP: 0-10 degrees PIP: 0-24 degrees MCP: 0-65 degrees OT Objective Data Hand Hand Dominance Left Hand Function QUICK DASH: 21 points Observations/Posture/Limb Appearance Objective Observations Swollen throughout the entire Index Finger Bruising noted around the stitches Skin/Wounds/Edema Comments R index finger incision noted across the middle phalanx and extends distally along the distal phalanx on the ulnar aspect of the index finger. Sensation Sensation Assessment Summary Comments Intact to light touch and pressure OT Problems Problems Problems Decreased Strength,Decreased Range of Motion,Decreased Dexterity,Pain,Decreased Coordination,Sensory Sensitivity,Lifting,Gripping, Pinching Patient Potential Good Assessment Assessment Assessment The patient is a pleasant L hand dominant 39-year-old male who sustained a wood splinter penetration of his right index finger volar skin along the middle phalangeal region. He thought he got the splinter out, but over the coming days noted that this finger continue to get increasingly red, swollen, warm, and difficulty to touch or prospecting observer things. He presented to [place] ED on 09/27/24 with clinical suspicion for paronychia. He was placed on oral antibiotics. He was seen the following day by ORTHO where there was more suspicion for pyogenic flexor tenosynovitis of the right index finger. Therefore, surgery was indicated to open the flexor sheath and irrigate as well as debride thoroughly . He was issued an Alumafoam splint to wear prior to surgery. Of note, patient is leaving for [place] for a 1 week vacation on 10/12/2024, leaving that morning on a flight therefore, his Ortho f/ u apt with PA is scheduled for 10/09/24 at 9:10 am for wound check and suture removal . Therapist has reviewed surgery notes and will review the f/u note after patient has that visit later this week. With patient leaving for vacation next week, therapist stressed the importance of good skin hygiene & infection prevention. I do not recommend the finger be submerged in the ocean or a pool while in [place]. From ORTHO's note after surgery 09/30/24: PLAN: 1. Encourage elevation of the operative extremity. 2. Range of motion of the operative extremity/digits as tolerated. 3. Ibuprofen, acetaminophen and/or oxycodone as needed for pain. 4. Follow up with PA visit in 12-16 days for wound check and suture removal. -this is scheduled for 10/09/24 at 9:10 am Deficits that are impacting and impairing ADLs/IADLs and work including: edema, decreased active ROM, decreased strength and mild pain int he R hand index finger. Skilled OT to address these deficits so that patient can resume ADLs/IADLs, work and leisure activities w/o impairment. It is anticipated that patient will make great gains and achieve all written goals in this POC. Patient receptive to program and highly motivated. Occupational Therapy Treatment Plan - OP Potential Rehabilitation Potential Good Barriers Barriers to goal attainment None noted. Set Goals Goals Set with Patient Yes Goals Goals 1. In order to show improvement in hand function, patient will reduce score on the Quick Dash from 21 points to less than 17 points 2. Through active participation in skilled OT sessions, patient will maximize post-surgical wound healing to prevent infection, minimize functional/cosmetic sequelae of scarring. 3. By completion of skilled therapy, there will be an increase of patient?s R hand PIP and DIP AROM to WFL 4. Patient will actively participate in their HEP (15 mins daily) in order to promote tendon gliding: decrease adhesions and promote strong union of sutured tendons so that patient can resume hand to normal, pain- free function. 5. Patient to tie shoes and button shirt independently using right hand for self-care [place] w/o difficulty. Target Date 12 weeks Treatment Plan Treatment Plan Evaluation,Edema Control,Joint Mobilization,Manual Therapy, Ultrasound,Wound Care/Scar Management,Therapeutic Exercise,Therapeutic Activities,Self Care/Home Management,Education Expected Frequency 1-2x Week Expected Duration 12 weeks Home Program Home Program Home Program Initiated Home Program Specifics Access Code: [email or web address] URL: [email or web address] Date: 10/05/2024 Prepared by: Christelle Pope Exercises - Wrist AROM Flexion Extension - 1 x daily - 7 x weekly - 3 sets - 10 reps - Wrist AROM Radial Ulnar Deviation - 1 x daily - 7 x weekly - 3 sets - 10 reps - Wrist AROM Wrist Circumduction - 1 x daily - 7 x weekly - 3 sets - 10 reps - Seated Forearm Pronation and Supination AROM - 1 x daily - 7 x weekly - 3 sets - 10 reps - Hand Fist Pumps - 1 x daily - 7 x weekly - 3 sets - 10 reps - Seated Edema Reduction Massage - 1 x daily - 7 x weekly - 3 sets - 10 reps - Seated Finger Composite Flexion Stretch - 1 x daily - 7 x weekly - 3 sets - 10 reps - Seated Finger Composite Flexion Extension - 1 x daily - 7 x weekly - 3 sets - 10 reps - Seated Single Finger Extension - 1 x daily - 7 x weekly - 3 sets - 10 reps - Seated Finger DIP AROM - 1 x daily - 7 x weekly - 3 sets - 10 reps - Seated Finger PIP AROM - 1 x daily - 7 x weekly - 3 sets - 10 reps - Seated Isolated Finger PIP Flexion AROM - 1 x daily - 7 x weekly - 3 sets - 10 reps Certification Certification Statement I Certify That: Therapy Services Provided, Therapy Plan Established, Therapy Plan Reviewed Certification Information Clinic ID # [id number] Initial Certification Date 10/05/24 Recertification Due Date 01/03/25 Provider Signature Required Yes Provider Signature Shows Agreement With POC & Medical Necessity Physician NPI Number Write NPI# Here Physician Comment/Change Comment or Changes Physician Signature & Date Requested Please Sign/Date Here
== END 2025-02-04 23:59 | disposition home or self-care (01) ==
PROVIDERS: PCP Family Medicine; Visit Provider Orthopaedic Surgery Sports Medicine
DX: Z48.89 Encounter for other specified surgical aftercare (principal); M65.841 Other synovitis and tenosynovitis, right hand; Z51.89 Encounter for other specified aftercare
CPT/HCPCS: 97110; 97166; 97535; X5282

== ENCOUNTER 2025-05-12 20:22 | Emergency (ER) | payer BC, SELFPAY ==
--- OUTSIDE RECORDS SUMMARY | 2025-05-12 20:25 | XMS_ITS | Clinical Summary ---
Author Organization [facility] Address [address] [place] [id number] Care Team Providers Care Warehouse Receiver Name Role Phone Lisset Marks DO Primary [...] AT BEDTIME 90 Tablet 2 4 Active Active Problems Problem Noted Date Diagnosed Date Hypertriglyceridemia 06/17/2023 Routine physical examination 06/17/2023 Psoriasis 07/09/2018 CITLALI, 09/15/17, AHI 42.5 11/08/2017 Immunizations Immunization Administration Dates Next Due DTP 06/10/1989,02/29/1988,1987 ,1987 [...] on file Legal Sex Male 5:24 AM [employer] Gender Identity Not on file Sexual Orientation Straight 10/03/2021 8: 48 AM [employer] Obstetrics History Last Filed Vital Signs Vital Sign Reading Time Taken Comments Blood Pressure 123/77 06/29/2024 7:49 AM CDT Pulse 65 06/29/2024 7:49 AM CDT Temperature 36.7 C (98 F) 06/29/2024 7:49 AM CDT Respiratory Rate 20 09/20/2022 3:59 PM [employer] Oxygen Saturation 99% 06/29/2024 7:49 AM CDT Inhaled Oxygen Concentration - - Weight 111.6 kg (246 lb) 06/29/2024 7:49 AM CDT Height 176.9 cm (5' 9.65) 06/29/2024 7:49 AM CD T Body Mass Index 35.66 06/29/2024 7:49 AM CDT Plan of Treatment Health Maintenance Due Date Last Done Comments COVID-19 vaccine series ( season) 2024 Influenza Vaccine (#1) 2025 06/13/2019, 2017 BMI (ht and wt on same day) for age 18+ 06/29/2025 06/29/2024, 06/17/2023, 10/06/2021, Additional history exists Depression screening for age 12+ 06/29/2025 06/29/2024, 06/17/2023, 10/06/2021, Additional history exists Lipids for age 35-44 06/29/2029 06/29/2024, 06/17/2023, 10/06/2021, Additional history exists Tetanus booster 06/22/2030 06/22/2020, 11/01/2010, 12/26/1999 RSV vaccine for adults or (1 - 1-dose 75+ series) 2062 Hepatitis B series for 19+ Completed 09/18, 03/22/1999, 02/16/1999 HIV for age 15-65 Completed 06/17/2023 Hepatitis C screening for age 18-79 Completed 06/17/2023 Pneumococcal series for age 6-49 Aged Out No longer eligible based on patient's age to complete this topic Procedures Procedure Name Priority Date/Time Associated Diagnosis Comments LIPID PANEL W REFLEX MEASURED LDL Routine [...] AM CDT) CHOLESTEROL, TOTAL 156 <200 mg/dL [facility] HDL CHOLESTEROL 31(L) > OR = 40 mg/dL [facility] TRIGLYCERIDES 272(H) <150 mg/dL [facility] Comment: If a non-fasting specimen was collected, consider repeat triglyceride testing on a fasting specimen if clinically indicated. Mariel et al. J. of Clin. Lipidol. 2015;9:129-169. LDL-CHOLESTEROL 89 mg/dL (calc) [facility] Comment: Reference range: <100 Desirable range <100 mg/dL for primary prevention; <70 mg/dL for patients with CHD or diabetic patients with > or = 2 CHD risk factors. LDL-C is now calculated using the Tavon-Kim calculation, which is a validated novel method providing better accuracy than the Friedewald equation in the estimation of LDL-C. Tavon MASTERSON et al. EDGAR. 2013;310(19): 7193-7542 (http://education.Dishable.Next Generation Systems/faq/TYG974) CHOL/HDLC RATIO 5.0(H) <5.0 (calc) [facility] NON HDL CHOLESTEROL 125 <130 mg/dL (calc) [facility] Comment: For patients with diabetes plus 1 major ASCVD risk factor, treating to a non-HDL-C goal of <100 mg/dL (LDL-C of <70 mg/dL) is considered a therapeutic option. Blood BLOOD SPECIMEN / Unknown 06/29/2024 8:26 AM CDT 06/29/2024 8:27 AM CDT Narrative [facility] - 06/30/2024 11:30 AM CDT FASTING:YES FASTING: YES us Lsiset Knappt DO CHEMISTRY Final Resul t [facility] [address] [place] [address], [place] [phone] [facility] [address] [place] [id number] * ANTI HCV (06/17/2023 8:29 AM CDT) [facility] HEPATITIS C ANTIBODY Non-Reacti ve Non-React ernestina 06/17/2023 6:05 PM CDT [facility] Comment:Please note, per www .CDC.gov: [...] AM CDT 06/17/2023 8:30 AM CDT Lisset Knappt DO SEND OUTS Final Resul t Performing Organization Address City/[facility]/ZIP Co de Phone Number [facility] [address] [place] [address], * ANTI HIV 1/2 [16319.0] (06/17/2023 8:29 AM CDT) [facility] HIV-1/HIV-2 SCREEN Non-Reacti ve Non-Reacti ve 06/17/2023 5:54 PM CDT [facility] Comment:HIV-1 p24 and HIV-1/ HIV-2 Ab Not Detected. Blood BLOOD SPECIMEN / Unknown Venipuncture / Unknown 06/17/2023 8:29 AM CDT 06/17/2023 8:30 AM CDT Lisset Knappt DO SEND OUTS Final Resul t Performing Organization Address City/[facility]/ZIP Co de Phone Number [facility] [address] [place] [address], from Last 3 Months or Most Recently Relevant to Health Maintenance Insurance [employer]UE [employer] OF NON-WA-ITS Care Teams Warehouse Receiver Relationship Specialty Start Date End Date Lisset Marks [place] [address] [place] [address] PCP - General Family Practice 07/01/19
[2025-05-12 20:28] VITALS: BP 127/77; PULSE 82; RESP 16; TEMP 36.7; O2SAT 97; BMI 34.4
--- NOTE | 2025-05-12 20:41 | ED.WOUNDLAC ---
HPI - Wound/Laceration General Date Seen: 05/12/25 Chief Complaint: Laceration/Wound Stated Complaint: R thumb cut by saw Time Seen by Provider: 05/12/25 20:35 Source: patient Mode of arrival: ambulatory Limitations: no limitations History of Present Illness HPI narrative: Patient is a 39-year-old male presenting to the emergency department for laceration to his right thumb. Patient states around 20:15 he was using a new router bit when he caught the pad of his right thumb. He washed out with water but cannot get the bleeding to stop. He was concerned because he recently had surgery back in September of this year for flexor tenosynovitis of the right index finger. No other injuries noted. Last tetanus was June 2020. Related Data Home Medications ?Medication ?Instructions ?Recorded ?Confirmed atorvastatin 20 mg tablet 20 mg PO QPM 01/29/24 05/12/25 Allergies Allergy/AdvReac Type Severity Reaction Status Date / Time No Known Drug Allergies Allergy Verified 05/12/25 20:31 Review of Systems Narrative: Pertinent systems reviewed and were negative unless stated in HPI PFSH PFSH Medical History Suppurative tenosynovitis of flexor tendon of right hand ?M65.141 - Other infective (teno)synovitis, right hand (ICD-10) Elevated cholesterol ?E78.00 - Pure hypercholesterolemia, unspecified (ICD-10) Psoriasis ?L40.9 - Psoriasis, unspecified (ICD-10) Sleep apnea ?G47.30 - Sleep apnea, unspecified (ICD-10) Surgical History H/O hand surgery (09/30/24) ?Z98.890 - Other specified postprocedural states (ICD-10) Social History Smoking Status: Never smoker Do you use any of these nicotine containing products: None How often do you have a drink containing alcohol: 2-3 times a week Alcohol type: beer How many standard drinks containing alcohol do you have on a typical day: 3 or 4 How often do you have six or more drinks on one occasion: Monthly AUDIT-C Alcohol total score: 6 Non-prescribed substance use: denies use Caffeine: Yes (Daily) Exam Narrative: Exam Narrative: Const: Well-nourished, Well-developed, in no distress Eyes: PERRL, no conjunctival injection, and symmetrical lids HENT: Atraumatic external nose and ears. Moist mucous membranes. MSK:Extremities w/o deformity, Normal Active ROM Skin: Warm, Dry. 1 cm x 1 cm avulsion of skin to the pad of the right thumb. No signs of involvement of the bone Neuro: Normal Muscle tone, No focal neurological deficits. Psych: Awake, Alert, & Oriented x3. Appropriate mood and affect. Const: Vital Signs, click to edit/add: Vital Signs - 24 hr 05/12/25 20:28 Temperature 98.1 F Pulse Rate [Pulse Oximeter] 82 Respiratory Rate 16 Blood Pressure [Ri ght Upper Arm] 127/77 Pulse Oximetry 97 Oxygen Delivery Me thod Room Air Course Vital Signs Vital signs: Initial Vital Signs Temperature 98.1 F 05/12/25 20:28 Temperature Source Temporal Artery Scan 05/12/25 20:28 Pulse Rate 82 05/12/25 20:28 Respiratory Rate 16 05/12/25 20:28 Blood Pressure 127/77 05/12/25 20:28 Blood Pressure Mean 93 05/12/25 20:28 Blood Pressure Position Sitting 05/12/25 20:28 Pulse Oximetry 97 05/12/25 20:28 Oxygen Delivery Method Room Air 05/12/25 20:28 Vital Signs Temperature 98.1 F 05/12/25 20:28 Pulse Rate 82 05/12/25 20:28 Respiratory Rate 16 05/12/25 20:28 Blood Pressure 127/77 05/12/25 20:28 Pulse Oximetry 97 05/12/25 20:28 Oxygen Delivery Method Room Air 05/12/25 20:28 Temperature 98.1 F 05/12/25 20:28 Pulse Rate 82 05/12/25 20:28 Respiratory Rate 16 05/12/25 20:28 Blood Pressure 127/77 05/12/25 20:28 Pulse Oximetry 97 05/12/25 20:28 Oxygen Delivery Method Room Air 05/12/25 20:28 MDM - Wound/Laceration MDM Narrative Medical decision making narrative: Patient is a 39-year-old male presenting to emergency department for avulsion of skin to his right thumb. I my exam I do not see any signs of bone involvement but I did offer an x-ray if they want to make sure. They declined. There is no scan to suture in place so instead we will put a non adhesive dressing. He did wash out the area again here in the emergency department. At this time I do not believe antibiotics are indicated but I did give him clear return precautions. He is agreeable to this plan. His tetanus is up-to-date. Discharge Plan Discharge Clinical Impression: Avulsion of skin Patient Disposition: Home, Self-Care Condition: Stable Additional Instructions: Change dressing daily until it is scabbed over. If you develop any of the following signs called Kanavel's Signs it could be a sign of flexor tenosynovitis and is an emergency that you need to return to emergency department immediately for -Pain with passive extension (often the first sign seen) -Percussion tenderness (tenderness over entire length of flexor tendon sheath) -Uniform swelling (symmetric finger swelling along length of the tendon sheath) -Flexion posture (flexed posture of involved digit at rest to minimize pain) Prescriptions: No Action atorvastatin 20 mg tablet 20 mg PO QPM Follow Up/Referrals: Lisset Marks DO [Primary Care Provider, Family Practice] Stand Alone Forms: MyHealth Info Instructions
== END 2025-05-12 21:00 | disposition home or self-care (01) ==
PROVIDERS: Emergency Provider Student in an Organized Health Care Education/Training Program; PCP Family Medicine
DX: S61.011A Laceration without foreign body of right thumb without damage to nail, initial encounter (principal); W27.0XXA Contact with workbench tool, initial encounter
CPT/HCPCS: 99281; 99282